=== PATIENT | female | born 1965 | race Caucasian/White ===

== ENCOUNTER → 2018-02-02 | Outpatient (CLI) | payer OTHER | LOC: M.RAD 10:53 | DX: Z12.31 Encounter for screening mammogram for malignant neoplasm of breast (principal); N39.0 Urinary tract infection, site not specified; R19.04 Left lower quadrant abdominal swelling, mass and lump; R59.0 Localized enlarged lymph nodes ==

== ENCOUNTER → 2018-02-18 | Outpatient (CLI) | payer OTHER | LOC: M.CT 14:46 | DX: K80.20 Calculus of gallbladder without cholecystitis without obstruction (principal); N80.0 Endometriosis of uterus ==

== ENCOUNTER → 2018-05-27 | Outpatient (CLI) | payer OTHER | LOC: M.RAD 12:24 | DX: M25.461 Effusion, right knee (principal); M17.11 Unilateral primary osteoarthritis, right knee ==

== ENCOUNTER → 2018-09-14 | Outpatient (CLI) | payer OTHER | LOC: M.ULTRA 14:06 | DX: I83.90 Asymptomatic varicose veins of unspecified lower extremity (principal); M79.89 Other specified soft tissue disorders ==

== ENCOUNTER → 2019-01-10 | Outpatient (CLI) | payer OTHER | LOC: M.ULTRA 07:29 | DX: R59.0 Localized enlarged lymph nodes (principal) ==

== ENCOUNTER → 2019-01-17 | Outpatient (CLI) | payer OTHER | LOC: M.CT 08:23 | DX: R59.0 Localized enlarged lymph nodes (principal); K80.20 Calculus of gallbladder without cholecystitis without obstruction; R91.1 Solitary pulmonary nodule; R59.1 Generalized enlarged lymph nodes; Z88.8 Allergy status to other drugs, medicaments and biological substances; Z88.0 Allergy status to penicillin ==

== ENCOUNTER → 2019-03-08 | Outpatient (CLI) | payer OTHER | LOC: M.RAD 08:12 | DX: Z12.31 Encounter for screening mammogram for malignant neoplasm of breast (principal) ==

== ENCOUNTER → 2020-04-30 | Outpatient (CLI) | payer OTHER | LOC: M.RAD 09:10 | PROVIDERS: ATTEND Registered Nurse Diabetes Educator | DX: Z12.31 Encounter for screening mammogram for malignant neoplasm of breast (principal) ==